=== PATIENT | female | born 1960 | race Caucasian/White ===

== ENCOUNTER 2023-05-09 13:44 | Outpatient (CLI) | payer OTHER, SELFPAY ==
--- NOTE | 2023-05-09 13:58 | CT_ITS ---
WS: [id number] CT CALCIUM SCORE REASON FOR VISIT: HYPERLIPIDEMIA/HYPERTENSION; Coronary artery disease risk assessment COMPARISON: None TECHNIQUE: Noncontrast coronary CT in combination with quantitative analysis performed on a separate workstation were used to determine CACS (Agatston score) TOTAL EXAM DOSE: 118.12 mGy.cm ECG GATING: Prospective SCAN RANGE: Pulmonary artery bifurcation to Inferior aspect of heart COMPLICATIONS: None FINDINGS: Technical Quality/Examination Quality: Good Limitation: None OVERALL SCORES Total calcium score: 6 Total volume score: 10 mm3 Percentile: 50-75% ARTERY SCORES Left main coronary artery: 0 Left anterior descending artery: 0 Left circumflex artery: 0 Right coronary artery: 0 Tiny amount of calcium measures I believe may be in the mitral valve plane. This appears external to the arteries. OTHER FINDINGS: Mediastinum: As visualized is negative. Calcification in the RIGHT hilum from calcified lymph nodes. Thoracic aorta: Normal. Lungs: Normal. Upper Abdomen: Normal. IMPRESSION: 1. Total calcium score of 6. I believe the calcium that is measured is probably extra coronary and re lated to the mitral valve. There really is no calcification identified in the coronary arteries. 2. Very low risk for cardiovascular event. GRADING OF CORONARY ARTERY DISEASE (BASED ON TOTAL CALCIUM SCORE) NO EVIDENCE OF CAD: 0 calcium score MINIMAL: 1-10 MILD: 11-100 MODERATE: 101-400 SEVERE:>400
== END 2023-05-09 13:45 | disposition home or self-care (01) ==
LOC: RAD 13:54
PROVIDERS: PCP Family Medicine; Visit Provider Family Medicine
DX: Z13.6 Encounter for screening for cardiovascular disorders (principal); E78.5 Hyperlipidemia, unspecified; I10 Essential (primary) hypertension
CPT/HCPCS: 75571